=== PATIENT | male | born 1940 | race Caucasian/White ===

== ENCOUNTER → 2017-02-10 | Outpatient (CLI) | payer MEDICARE, BC ==
[~2017-02-10] MED LIST: ALBUTEROL17 GM INH; SPIRIVA18 MCG INH; SYMBICORT INH
--- NOTE | ~2017-02-10 | MR83 ---
STS. [facility] A Service of [facility] & [facility] RADIOLOGY TEXT RESULTS PATIENT: ROSELINE BARAKAT LOCATION: [facility] : 44 UNIT #: [id number] AGE: [address]: Tr Abreu MD SEX: M ORDER DR: [id number] [address] [address] [id number] MR#: [id number] Acc #: [id number] NAME: ROSELINE BARAKAT : 1940 SEX: M STUDY DATE/TIME: 02/10/2017 11:56 UNIT: [facility] ROOM: STUDY DESCRIPTION: MR Hip Wo Contrast Lt Attending Physician: Tr Abreu M.D. Referring Physician: Tr Abreu M.D. Ordering Physician: Tr Abreu M.D. Primary Care Physician: Tr Abreu M.D. MRI CENTER REPORT This report is preliminary unless electronic signature is present. EXAM MRI pelvis and hips 02/10/2017. COMPARISON STUDIES Comparison - left hip radiographs 12/30/2016 [facility]. HISTORY History - order states left hip pain. X-ray shows severe degenerative changes. Pain and decreased range of motion. History sheet states no known injury and no knee surgery. Increasing left hip pain for 6 months. Limited range of motion. ? AVN. History of COPD. No hip surgery. 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 There is joint space narrowing, osteophyte formation, subarticular cystic change, marrow edema, and early superior femoral head articular collapse with flattening. There is femoral head osteophyte formation. There is no effusion but there are subtle intraarticular loose bodies. The right hip demonstrates no effusion, fracture, arthritic change, or loose body. There is, however, a zone of avascular necrosis of the right superolateral femoral head measuring 2.5 cm transverse x 2.8 cm AP. There is no collapse. Gluteal tendons are intact. The remainder of the bony pelvis, sacrum, and SI joints is normal. There is sigmoid diverticulosis. No adenopathy, hernia, or intrapelvic anterior pelvic abnormality is otherwise noted. [facility]. [facility] A Service of [facility] & [facility] RADIOLOGY TEXT RESULTS PATIENT: ROSELINE BARAKAT LOCATION: [facility] : 44 UNIT #: [id number] AGE: [address]: Tr Abreu MD SEX: M ORDER DR: IMPRESSION 1. There are arthritic changes of the left hip as well as superior left femoral head avascular necrosis and/or early collapse. Small intraarticular loose bodies. 2. 2.8 x 2.5 cm zone of avascular necrosis of the right femoral head without effusion, arthrosis, or collapse. 3. Sigmoid diverticulosis. Dictated by... Ramona De La Garza M.D. THIS IS AN ELECTRONICALLY VERIFIED REPORT Ramona De La Garza M.D. at 02/11/2017 12:27 PM RUDY/víctor TD: 02/10/2017 20:18 JOB #: [id number] MRI CENTER REPORT Page 1 of 1
== END | disposition home or self-care (01) ==
LOC: SMRI 11:25
DX: M25.552 Pain in left hip (principal); M87.852 Other osteonecrosis, left femur; K57.30 Diverticulosis of large intestine without perforation or abscess without bleeding
CPT/HCPCS: 73721